=== PATIENT | female | born 1980 | race Two or more races ===

== ENCOUNTER 2024-05-01 14:46 | Inpatient (IN) | payer BC ==
[~2024-05-01] VITALS: Ht 162.6 cm; Wt 81.6 kg
[2024-05-01 15:47] LABS: BASOPHILS # (AUTO) 0.1 K/uL (0.0-0.2); BASOPHILS % (AUTO) 0.9 % (0.0-2.0); EOSINOPHILS # (AUTO) 0.4 K/uL (0.0-0.7); EOSINOPHILS % (AUTO) 4.7 % (0.0-6.0); HEMATOCRIT 39 % (33-45); HEMOGLOBIN 13.2 g/dL (11.5-14.8); LYMPHOCYTES # (AUTO) 3.2 K/uL (0.8-4.8); LYMPHOCYTES % (AUTO) 34.9 % (20.0-44.0); MEAN CORPUSCULAR HEMOGLOBIN 32 PG (26.0-33.0); MEAN CORPUSCULAR HGB CONC 34 g/dl (31.0-36.0); MEAN CORPUSCULAR VOLUME 94 fL (82-100); MONOCYTES # (AUTO) 0.7 K/uL (0.1-1.30); MONOCYTES % (AUTO) 7.8 % (2.0-12.0); NEUTROPHILS # (AUTO) 4.8 K/uL (1.8-8.9); NEUTROPHILS % (AUTO) 51.7 % (43.0-81.0); PLATELET COUNT (AUTO) 292 K/uL (150-450); RED BLOOD CELL COUNT(AUTO) 4.16 MIL/uL (4.0-5.2); RED CELL DISTRIBUTION WIDTH 14.1 % (11.5-15.0); WHITE BLOOD COUNT (AUTO) 9.3 K/uL (4.3-11.0)
[2024-05-01] MEDS ORDERED: ONDANSETRON HCL/PF 4 MG/2 ML VIAL ONE (15:53)
[2024-05-01] MEDS ORDERED: MORPHINE SULFATE INJ 4 MG/ML DISP.SYRIN ONE ×3 (15:53→20:01)
[2024-05-01 16:03] LABS: CALCIUM, SERUM 9.1 mg/dL (8.5-10.1); CREATININE 0.7 mg/dL (0.6-1.3)
[2024-05-01 16:04] LABS: INR 0.92 (0.91-1.10); PROTHROMBIN TIME 9.8 SECS (9.2-11.1)
[2024-05-01 16:09] LABS: ALBUMIN 3.3 g/dL (3.4-5.0); BILIRUBIN,DIRECT 0.1 mg/dL (0.0-0.2); BILIRUBIN,TOTAL 0.2 mg/dL (0.2-1.0); TOTAL PROTEIN, SERUM 7.5 g/dL (6.4-8.2)
[2024-05-01] MEDS ORDERED: IV NS 0.9% 250 ML IV ONE (16:18)
[2024-05-01] MEDS ORDERED: IOHEXOL-300 100 ML VIAL IV ONE (16:18)
[2024-05-01] MEDS: IV NS 0.9% 1,000 ML BAG IV ONE (16:22)
[2024-05-01] MEDS: MORPHINE SULFATE INJ 2 MG/ML DISP.SYRIN IV ONE ×3 (16:23→20:04)
[2024-05-01] MEDS: ONDANSETRON HCL/PF 4 MG/2 ML VIAL IV ONE (16:23)
[2024-05-01 19:02] LABS: APPEARANCE,URINE CLEAR (CLEAR); BILIRUBIN,URINE NEGATIVE (NEGATIVE); BLOOD, URINE TRACE-INTA Ery/uL (NEGATIVE); COLOR,URINE YELLOW (YELLOW); KETONES,URINE NEGATIVE (NEGATIVE); LEUKOCYTE ESTERASE ,URINE TRACE (NEGATIVE); NITRITE, URINE NEGATIVE (NEGATIVE); PROTEIN,URINE NEGATIVE (NEGATIVE); UGLUCOSE NEGATIVE (NEGATIVE)
[2024-05-01 19:07] LABS: ADD URINE CULTURE NO; BACTERIA,URINE RARE /HPF (None Seen)
[2024-05-01] MEDS ORDERED: HYDROMORPHONE 1 MG/1 ML DISP.SYRIN ONE (20:07)
[2024-05-01] MEDS: HYDROMORPHONE 1 MG/1 ML DISP.SYRIN IV ONE (20:11)
[2024-05-01] MEDS ORDERED: VANCOMYCIN 1 GM /D5W 250 ML PB IV ONE (20:59)
[2024-05-01] MEDS ORDERED: CEFEPIME 1 GM VIAL ONE (20:59)
[2024-05-01] MEDS: CEFEPIME 1 GM in IV D5W 50 ML IV ONE (21:11)
[2024-05-01 21:45] VITALS: BP 138/95; TEMP 97.7; O2SAT 100
[2024-05-01] MEDS: VANCOMYCIN 1 GM in IV D5W 250 ML IV ONE (21:51)
[2024-05-01 22:00] VITALS: BP 132/92; TEMP 97.9; O2SAT 97
[2024-05-01] MEDS ORDERED: MAGNESIUM HYDROXIDE 30 ML UDC PO PRN (22:00)
[2024-05-01] MEDS ORDERED: Z GUARD REMEDY 4 OZ OINT TP PRN (22:00)
[2024-05-01] MEDS ORDERED: MORPHINE SULFATE INJ 2 MG/ML DISP.SYRIN IV PRN (22:00)
[2024-05-01] MEDS ORDERED: MAG HYDROX/AL HYDROX/SIMETH 30 ML UDC PO PRN (22:00)
[2024-05-01] MEDS ORDERED: FLUO40CA8 PO (22:16)
[2024-05-01] MEDS ORDERED: TOPI50TA PO (22:16)
[2024-05-01] MEDS: Fluoxetine 10 mg capsule PO ONE (23:50)
[2024-05-01] MEDS: TOPIRAMATE 100 MG TABLET PO ONE (23:50)
[2024-05-01] MEDS: ACETAMINOPHEN 325 MG TABLET PO PRN (23:50)
[2024-05-02] MEDS: HYDROMORPHONE 1 MG/1 ML DISP.SYRIN IV PRN ×2 (00:31→10:29)
[2024-05-02] MEDS ORDERED: CLON0.1T PO (01:44)
[2024-05-02] MEDS ORDERED: AMLO-212 PO (01:44)
[2024-05-02] MEDS ORDERED: CARV6.25 PO (01:44)
[2024-05-02] MEDS ORDERED: BUPR-53 PO (01:44)
[2024-05-02] MEDS: ZOLPIDEM TARTRATE 5 MG TABLET PO PRN (03:36)
[2024-05-02] MEDS: ONDANSETRON HCL/PF 4 MG/2 ML VIAL IVP PRN (04:39)
[2024-05-02] MEDS ORDERED: CEFEPIME 1 GM VIAL ONE (05:29)
[2024-05-02] MEDS: CEFEPIME 1 GM in IV D5W 50 ML IV ONE (05:48)
[2024-05-02 06:37] LABS: BASOPHILS % (AUTO) 0.5 % (0.0-2.0); EOSINOPHILS # (AUTO) 0.5 K/uL (0.0-0.7); HEMATOCRIT 37 % (33-45); HEMOGLOBIN 12.2 g/dL (11.5-14.8); LYMPHOCYTES # (AUTO) 3.4 K/uL (0.8-4.8); LYMPHOCYTES % (AUTO) 44.9 % (20.0-44.0); MEAN CORPUSCULAR HEMOGLOBIN 31 PG (26.0-33.0); MEAN CORPUSCULAR HGB CONC 33 g/dl (31.0-36.0); MEAN CORPUSCULAR VOLUME 94 fL (82-100); MONOCYTES # (AUTO) 0.7 K/uL (0.1-1.30); MONOCYTES % (AUTO) 9.2 % (2.0-12.0); NEUTROPHILS % (AUTO) 39.4 % (43.0-81.0); PLATELET COUNT (AUTO) 288 K/uL (150-450); RED BLOOD CELL COUNT(AUTO) 3.92 MIL/uL (4.0-5.2); RED CELL DISTRIBUTION WIDTH 13.9 % (11.5-15.0); WHITE BLOOD COUNT (AUTO) 7.7 K/uL (4.3-11.0)
[2024-05-02 07:14] LABS: CALCIUM, SERUM 8.1 mg/dL (8.5-10.1); CREATININE 0.5 mg/dL (0.6-1.3); PHOSPHORUS 3.1 mg/dL (2.5-4.9); POTASSIUM 3.3 mmol/L (3.5-5.1)
[2024-05-02 07:19] LABS: ERYTHROCYTE SEDIMENTATION RATE 38 MM/HR (0-20)
[2024-05-02] MEDS: PANTOPRAZOLE 40 MG TABLET.DR PO SCH (07:25)
[2024-05-02] MEDS: VANCOMYCIN HCL 1.25 GM in IV D5W 250 ML IV SCH (09:21)
[2024-05-02] MEDS: POTASSIUM CHLORIDE 20 MEQ TAB.PRT.SR PO ONE (10:07)
[2024-05-02] MEDS ORDERED: CEFEPIME 2 GM in IV D5W 50 ML IV SCH (12:00)
[2024-05-02] MEDS: CEFEPIME 2 GM in IV D5W 50 ML IV SCH (12:44)
[2024-05-02] MEDS: METRONIDAZOLE 500 MG TABLET PO SCH (12:44)
[2024-05-02] MEDS ORDERED: CEFEPIME 1 GM in IV D5W 50 ML IV SCH (18:00)
[2024-05-02 20:00] VITALS: BP 118/77; TEMP 98.2; O2SAT 96
[2024-05-02] MEDS: Fluoxetine 10 mg capsule PO SCH (21:15)
[2024-05-02] MEDS: TOPIRAMATE 100 MG TABLET PO SCH (21:15)
[2024-05-03 07:42] LABS: CALCIUM, SERUM 8.7 mg/dL (8.5-10.1); CREATININE 0.6 mg/dL (0.6-1.3); POTASSIUM 3.7 mmol/L (3.5-5.1)
[2024-05-03 08:00] VITALS: BP 135/88; TEMP 98.2
[2024-05-03 16:00] VITALS: BP 138/94; TEMP 98.2
[2024-05-03] MEDS: VANCOMYCIN 1 GM in IV D5W 250 ML IV SCH (19:58)
[2024-05-03 20:00] VITALS: BP 130/78; TEMP 98.1; O2SAT 100
[2024-05-04 06:22] LABS: BASOPHILS # (AUTO) 0.1 K/uL (0.0-0.2); BASOPHILS % (AUTO) 0.7 % (0.0-2.0); EOSINOPHILS # (AUTO) 0.3 K/uL (0.0-0.7); HEMATOCRIT 38 % (33-45); HEMOGLOBIN 12.8 g/dL (11.5-14.8); LYMPHOCYTES # (AUTO) 2.2 K/uL (0.8-4.8); LYMPHOCYTES % (AUTO) 25.2 % (20.0-44.0); MEAN CORPUSCULAR HEMOGLOBIN 32 PG (26.0-33.0); MEAN CORPUSCULAR HGB CONC 34 g/dl (31.0-36.0); MEAN CORPUSCULAR VOLUME 94 fL (82-100); MONOCYTES # (AUTO) 0.6 K/uL (0.1-1.30); MONOCYTES % (AUTO) 6.8 % (2.0-12.0); NEUTROPHILS # (AUTO) 5.6 K/uL (1.8-8.9); NEUTROPHILS % (AUTO) 64.3 % (43.0-81.0); PLATELET COUNT (AUTO) 320 K/uL (150-450); RED BLOOD CELL COUNT(AUTO) 4.03 MIL/uL (4.0-5.2); RED CELL DISTRIBUTION WIDTH 13.9 % (11.5-15.0); WHITE BLOOD COUNT (AUTO) 8.7 K/uL (4.3-11.0)
[2024-05-04 06:59] LABS: CALCIUM, SERUM 9.3 mg/dL (8.5-10.1); CREATININE 0.6 mg/dL (0.6-1.3); POTASSIUM 3.5 mmol/L (3.5-5.1)
[2024-05-04 08:00] VITALS: BP 140/90; TEMP 98.2; O2SAT 97
[2024-05-04 09:43] LABS: HIV-1 p24 ANTIGEN NON REACTIVE (NONREACTIVE); HIV-1/2 ANTIBODY NON REACTIVE (NONREACTIVE)
[2024-05-04] MEDS ORDERED: CEFTRIAXONE 1GM BAG (ER ONLY) 1 GM/50 ML PIGGYBACK IV SCH (13:00)
[2024-05-04] MEDS: CEFTRIAXONE 2 G in IV D5W 100 ML IV SCH (13:52)
[2024-05-04] MEDS: SENNOSIDES/DOCUSATE SODIUM 1 TAB TABLET PO SCH (15:44)
[2024-05-04 20:00] VITALS: BP 121/83; TEMP 98.6; O2SAT 94
[2024-05-04] MEDS ORDERED: CEFEPIME 2 GM in IV D5W 100 ML IV SCH (21:00)
[2024-05-05 08:16] LABS: CALCIUM, SERUM 9.2 mg/dL (8.5-10.1); CREATININE 0.6 mg/dL (0.6-1.3); POTASSIUM 3.9 mmol/L (3.5-5.1)
[2024-05-05 08:30] VITALS: BP 119/85; TEMP 98.6; O2SAT 97
[2024-05-05] MEDS ORDERED: AMOX-430 PO (12:30)
[2024-05-06 08:06] LABS: RAPID PLASMA REAGIN QUAL. Non Reactive (Non Reactive)
== END 2024-05-05 14:00 | disposition home or self-care (01) | DRG 757 ==
LOC: ER 15:03 → MED 21:22
PROVIDERS: ADMIT Nurse Practitioner Family
DX: N76.2 Acute vulvitis (principal); K66.1 Hemoperitoneum; N39.0 Urinary tract infection, site not specified; N75.1 Abscess of Bartholin's gland; M79.7 Fibromyalgia; E88.09 Other disorders of plasma-protein metabolism, not elsewhere classified; E66.9 Obesity, unspecified; Z68.30 Body mass index [BMI] 30.0-30.9, adult; Z90.49 Acquired absence of other specified parts of digestive tract; Z90.710 Acquired absence of both cervix and uterus; Z88.1 Allergy status to other antibiotic agents; Z91.048 Other nonmedicinal substance allergy status; Z98.890 Other specified postprocedural states; Z79.899 Other long term (current) drug therapy; B96.89 Other specified bacterial agents as the cause of diseases classified elsewhere; N83.201 Unspecified ovarian cyst, right side; R74.8 Abnormal levels of other serum enzymes
CPT/HCPCS: 36415; 80048-TC; 80076-TC; 80202-TC; 81001; 83690-TC; 83735-TC; 84100-TC; 85025-TC; 85652-TC; 85730-TC; 86592; 86593; 86803; 87040-TC; 87081-TC; 87086-TC; 87806; A4223; G0378; J0692; J0696; J1171; J2270; J2405; J3370; J7030; J7040; J7050; J7060; Q9967